=== PATIENT | female | born 1985 | race Caucasian/White ===

== ENCOUNTER 2016-11-13 21:29 | Inpatient (IN) | payer BC ==
[~2016-11-13] VITALS: Ht 167.6 cm; Wt 132.7 kg
--- NOTE | ~2016-11-13 | OR ---
[facility] 31 [facility] [address] ROOM: [place] [address] LOCATION: GOBS ADMIT DATE: 11/14/2016 OR/Procedure Report DISCHARGE DATE: FAMILY PHYSICIAN: PHYSICIAN, UNKNOWN ATTENDING PHYSICIAN: RIK BUTLER SURGEON: Claudia Subramanian MD EXERCISE SPECIALIST: DATE OF PROCEDURE: 11/14/2016 PREOPERATIVE DIAGNOSES: 1. Intrauterine at 37 weeks and 4 days. 2. Preeclampsia. 3. Insulin-dependent diabetes mellitus. 4. Prior section. 5. Obesity. 6. Chronic anemia. POSTOPERATIVE DIAGNOSES: 1. Intrauterine at 37 weeks and 4 days. 2. Preeclampsia. 3. Insulin-dependent diabetes mellitus. 4. Prior section. 5. Obesity. 6. Chronic anemia. PROCEDURE: Repeat low transverse section. EXERCISE SPECIALIST SURGEON: renal dialysis technician. ANESTHESIA: Spinal. ESTIMATED BLOOD LOSS: 500 mL. FINDINGS: Male infant, score of 8 and 9, weight 9 pounds 11 ounces. Intact placenta, 3-vessel cord. Normal uterus, tubes, and ovaries. Clear amniotic fluid. DRAINS: [place]. SPECIMENS: Placenta. COMPLICATIONS: None. INDICATIONS: The patient is a 31-year-old, 2, para 0-1-0-1 female with insulin-dependent diabetes mellitus. She presented last night for PATIENT'S NAME: MEGAN JACOBS [facility] AGE: 31 Y [address] ROOM: [place] [address] LOCATION: [facility] ADMIT DATE: 11/14/2016 OR/Procedure Report DISCHARGE DATE: FAMILY PHYSICIAN: PHYSICIAN, UNKNOWN ATTENDING PHYSICIAN: RIK BUTLER decreased movement. She was noted to have blood pressures in the severe range. She was given magnesium sulfate and scheduled for a repeat low transverse section. Prior to the procedure, the risks, benefits, and alternatives to the procedure were discussed with the patient. She understood the risks to be, but not to be limited to, bleeding, infection, damage to the bowel, bladder, ureter, and surrounding organs and desired to proceed. DESCRIPTION OF PROCEDURE: The patient was taken to the operating room. Anesthesia was found to be adequate. She was prepped and draped in a dorsal supine position with leftward tilt. A Pfannenstiel skin incision was made and carried down to the fascia. The fascia was incised across the midline. The fascial incision was extended. The rectus muscles were . The peritoneum was entered. The bladder blade was inserted. The uterus was incised in a low transverse fashion with a scalpel. The uterine incision was extended with vertical traction. Surgeon's hand was inserted into the uterus. The head delivered. The rest of the fetus delivered with some difficulty due to the size. I did have to extend the incision into the scar tissue and a small amount into the abdominal muscle. I was able to deliver the head. The rest of the fetus delivered. The nose and mouth were bulb suctioned. Cord was clamped and cut. The infant was handed to awaiting team. Cord pH and cord blood were drawn. The placenta delivered with manual traction. Uterus was exteriorized and cleared of clots and debris. It was repaired with 0 Vicryl in a running-locked fashion with hemostasis noted. It was returned to the abdomen. The gutters were cleared of clots and debris. The area where I extended the incision was hemostatic. The fascia was repaired with looped PDS suture. The subcutaneous adipose tissue was hemostatic. It was reapproximated with 2-0 Vicryl suture. The skin was closed with 4-0 Vicryl suture and Steri-Strips were placed. Complications were none. CONDITION: Mom stable in room. Infant to nursery. MD MOHAMUD SCRUGGS/rayray /[id number] d: 11/14/1637 t: 12/02/16 0859, OPERATIVE SUMMARY
[~2016-11-13 21:29] MED LIST: ADALAT CC90 MG PO; MOTRIN800 MG PO; NOVOLOG100 UNIT/1; PERCOCET 5-3251 EACH PO; PRENATAL 1+1)(P1 TAB PO
[2016-11-13 22:24] LABS: BASOPHIL % 0.3 %; EOSINOPHIL # 0.1 K/uL (0.0-0.5); EOSINOPHIL % 0.7 %; HEMATOCRIT 27.7 % (33.0-46.0); HEMOGLOBIN 8.5 g/dL (11.0-15.0); IMMATURE GRANULOCYTE # 0.1 K/uL (0.0-0.3); IMMATURE GRANULOCYTE % 0.9 %; LYMPHOCYTE # 2.3 K/uL (0.8-4.0); LYMPHOCYTE % 19.8 %; MCH 22.6 pg (27.0-34.0); MCHC 30.7 gm/dL (32.0-36.5); MCV 73.7 fl (83.0-98.0); MONOCYTE # 0.9 K/uL (0.0-1.0); MONOCYTE % 7.3 %; MPV 9.9 fl (9.4-12.4); NEUTROPHIL # (ANC) 8.4 K/uL (1.8-7.8); NRBC % 0 /100WBC (0-0.00); PLATELET COUNT 302 K/uL (150-450); RBC 3.76 M/uL (3.50-5.50); RDW-CV 15.1 % (11.9-14.6); WBC 11.8 K/uL (4.0-11.0)
[2016-11-13 22:41] LABS: ALBUMIN 2.4 gm/dL (3.5-5.0); ALK PHOS 138 IU/L (33-138); ALT 19 IU/L (12-78); ANION GAP 13.1 (10.0-19.0); AST 14 IU/L (10-40); BLOOD UREA NITROGEN 7 mg/dL (6-24); CALCIUM 8.5 mg/dL (8.5-10.5); CHLORIDE 107 mMol/L (96-110); CO2 21 mMol/L (22-32); CREATININE 0.8 mg/dL (0.5-1.1); ESTIMATED GFR (MDRD EQUATION) > 60; POTASSIUM 4.1 mMol/L (3.7-5.1); SODIUM 137 mMol/L (135-145); TOTAL BILIRUBIN 0.2 mg/dL (0.0-1.5); TOTAL PROTEIN 6.6 g/dL (6.0-8.4)
[2016-11-13] MEDS ORDERED: NOVOLOG100 UNIT/M (22:44)
--- NOTE | 2016-11-14 04:55 | NUR ---
Last VS: T:98.2 P:82 R: 20 BP: 156/76 Pain ratin Last pain med: NONE GIVEN Medicated at: Effective: FHT: 150's Dilatation: Effacement %: Station: Significant event: magnesium sulfate going @ 2 gm/hr. pt has subq insulin pump for her type 1 diabetes. accurate i & o. plans for csection @ 4218 this am.
[2016-11-14 08:35] LABS: BICARBONATE 26.8 mmol/L (18.0-23.0); PCO2 87 mmHg (35-45); PO2 7 mmHg (80-90)
--- NOTE | 2016-11-14 11:52 | NUR ---
Diabetes Consult: Patient is following . The patient utilizes an t-slim insulin pump. The patient has been on the phone this morning talking with Nasra Callejas APRN regarding her insulin pump settings. Patient is documenting blood sugars to diabetes log sheet. Will continue to follow.
--- NOTE | 2016-11-14 15:06 | NUR ---
Diabetes consult: Patient with blood sugar down to 203 approximately one hour post meal. Patient reports she will check a blood sugar at supper as well as a 2 hour post prandial and two additional checks during the night. Will continue to follow and return in the a.m to assist if pump adjustments need made.
[2016-11-15 05:18] LABS: BASOPHIL # 0.1 K/uL (0.0-0.2); BASOPHIL % 0.5 %; EOSINOPHIL # 0.1 K/uL (0.0-0.5); HEMATOCRIT 27.8 % (33.0-46.0); HEMOGLOBIN 8.5 g/dL (11.0-15.0); IMMATURE GRANULOCYTE # 0.1 K/uL (0.0-0.3); IMMATURE GRANULOCYTE % 0.8 %; LYMPHOCYTE # 2.2 K/uL (0.8-4.0); LYMPHOCYTE % 17.2 %; MCH 22.9 pg (27.0-34.0); MCHC 30.6 gm/dL (32.0-36.5); MCV 74.9 fl (83.0-98.0); MONOCYTE # 0.7 K/uL (0.0-1.0); MONOCYTE % 5.7 %; MPV 10.1 fl (9.4-12.4); NEUTROPHIL # (ANC) 9.4 K/uL (1.8-7.8); NEUTROPHIL % 74.8 %; NRBC % 0 /100WBC (0-0.00); PLATELET COUNT 303 K/uL (150-450); RBC 3.71 M/uL (3.50-5.50); RDW-CV 15.2 % (11.9-14.6); WBC 12.6 K/uL (4.0-11.0)
--- NOTE | 2016-11-15 05:33 | NUR ---
Last BP 138/76, P 90, afebrile, 2 Percocet last at 0515, DTRs 1+, clear lungs, Procardia due at 0900, Pain last 1, Hgb 8.5 initially and this AM
--- NOTE | 2016-11-15 09:40 | NUR ---
Introduced self/role to patient. She and her Adrien live in [place]. Their son Bhanu is 21 months. Baby currently in NICU. Encouraged mom to call insurance to get baby added. She will tell her , he will have to call as he carries the insurance. Went over post depression, she stated she had a little of that last time. They have all their needed baby supplies. Baby's name is Sam. Her only questions about length of stay. Let her know a typical can stay 3-4 days and the day or discharge does not count. She will either dismissed Friday or Friday. We talked about rooming option such as the [facility] and rooming in. She asked that care management followup with her again on Friday to discuss that. Did tell her how to reserve a room thru either admission or the ER depending on time of day. She understands it would be self pay. Inquired who her family doctor was? She stated she has been to [facility] in the past, otherwise see the diabetic specialist at [facility].
--- NOTE | 2016-11-15 10:01 | NUR ---
Diabetes consult: Patient alert and oriented and able to manage insulin pump. Patient with blood sugars well controlle yesterday afternoon and evening with 95, 194, 168, and 166 noted. Patient's fasting blood sugar was 210 this a.m. Yesterday morning following her her blood sugar was in the 300's, however, this may have been related to her pump being off for two hours. Recommended that we increase her morning basal rate. The patient has been texting DENIA Lora who has been managing her diabetes and reports she would feel more comfortable talking with Alexa prior to making changes. Patient began texting provider. Patient was instructed to write down any changes made to her diabetes log sheet. Will continue to follow.
--- NOTE | 2016-11-15 17:17 | NUR ---
Last VS: T:98.1 P:104 R: 14 BP: 133/57 Pain ratin. Last pain med: Percocet/IBUPROFEN Medicated at: 1105 Effective: Yes R Lung sounds: CLEAR, L Lung sounds: CLEAR Fundus: FIRM, MIDLINE, 1 BELOW Lochia: SMALL, RUBRA Breasts: SOFT, PUMPING Nipples: NO PROBLEM Incision: DRESSING REMOVED Incision closure: APPROXIMATED, SUTURE, STERI-STRIP Bowel sounds: Passing flatus: YES Voiding well: YES Significant event: *.
--- NOTE | 2016-11-16 05:18 | NUR ---
VSS. MAG DC'D 11/15 AT 0800. LAST BP WAS 135/63. PT IS TYPE 1 DIABETIC, WEARS INSULIN PUMP, CHECKS OWN BS. FUNDUS FIRM, SMALL FLOW. LAST HAD PERC/MOT AT 0456. PUMPING, VISITS NICU OFTEN. WOULD LIKE TO BE WOKEN UP AT 0630.
--- NOTE | 2016-11-16 18:10 | NUR ---
11/16 1804: assisted pt with dexcom application, pt reports she has had high blood sugars today and that she has been in contact with Mago LOZA reguarding her blood sugars and how to treat them through out the day. Joanna ALATORRE
--- NOTE | 2016-11-17 05:33 | NUR ---
Fundus firm, even, 1down. Small flow. Blood pressure 156/79, patient was up walking aroun. BP 139/63 when resting in bed. Visits NICU frequently. Last Motrin and 1 percocet at 0313.
[2016-11-17] MEDS ORDERED: APNO TOP (16:12)
[2016-11-17] MEDS ORDERED: MOTRIN800 MG PO (16:12)
[2016-11-17] MEDS ORDERED: PERCOCET 5-3251 EACH PO (16:13)
== END 2016-11-17 23:45 | disposition disaster alternative care site (69) | DRG 765 ==
LOC: GOBS 21:29 → GOBM 21:29 → GOBS 21:30 → GOBM 21:31 → GOBS 11-14 01:18 → GOBM 11-14 01:18 → GOBS 11-17 23:45
PROVIDERS: Obstetrics & Gynecology; ADMIT Obstetrics & Gynecology
PROC: 10D00Z1 Extraction of Products of Conception, Low, Open Approach (ICD-10-PCS; principal; 2016-11-16)
DX: O14.94 Unspecified pre-eclampsia, complicating childbirth (principal); Z68.42 Body mass index [BMI] 45.0-49.9, adult; O24.92 Unspecified diabetes mellitus in childbirth; O99.214 Obesity complicating childbirth; O99.02 Anemia complicating childbirth; O34.211 Maternal care for low transverse scar from previous cesarean delivery; Z3A.37 37 weeks gestation of pregnancy; Z37.0 Single live birth; Z79.4 Long term (current) use of insulin
CPT/HCPCS: J0610; J0690; J1885; J2001; J2270; J2590; J3475; J7120